=== PATIENT | male | born 1960 | race Caucasian/White ===

== ENCOUNTER 2018-12-15 15:19 | Emergency (ER) | payer OTHER ==
[2018-12-15] MEDS ORDERED: SODIUM CHLORIDE 0.9% 1,000 ML IV STA (15:52)
[2018-12-15 16:06] VITALS: BP 108/68; PULSE 69; RESP 18; TEMP 97
--- NOTE | 2018-12-15 16:48 | XR ---
EXAMINATION TYPE: XR foot complete RT DATE OF EXAM: 12/15/2018 COMPARISON: NONE HISTORY: Pain TECHNIQUE: 3 views FINDINGS: Metatarsals appear intact. There are small plantar and Achilles calcaneal spurs. There is n ondisplaced fracture of the tuft of the distal phalanx of the big toe. There are no erosions. IMPRESSION: Nondisplaced big toe fracture at the tuft.
[2018-12-15] MEDS ORDERED: ACET/COD 300 MG/30 MG STARTER PACK 6 TAB BTL PO STA (17:24)
--- NOTE | 2018-12-15 17:27 | ED ---
General Adult HPI - General Chief complaint: Extremity Injury, Lower Stated complaint: right foot injury, [facility] Time Seen by Provider: 12/15/18 15:52 Source: patient, RN notes reviewed Mode of arrival: ambulatory Limitations: no limitations - History of Present Illness Initial comments: 50-year-old male presents to the emergency department for chief complaint of right great toe pain. Patient states he was at work when he dropped a plow on his right great toe. Patient states it is swollen and painful. States this happened about one hour prior to arrival. Patient denies any other injuries. Patient is able to ambulate on the foot although it is painful when pressure is applied to the great toe.Patient has no other complaints at this time including shortness of breath, chest pain, abdominal pain, nausea or vomiting, headache, or visual changes. - Related Data Allergies Allergy/AdvReac Type Severity Reaction Status Date / Time No Known Allergies Allergy Verified 12/15/18 16:06 Review of Systems ROS Statement: Those systems with pertinent positive or pertinent negative responses have been documented in the HPI. ROS Other: All systems not noted in ROS Statement are negative. Past Medical History Past Medical History: No Reported History History of Any Multi-Drug Resistant Organisms: None Reported Past Surgical History: No Surgical Hx Reported Past Psychological History: No Psychological Hx Reported Smoking Status: Never smoker Past Alcohol Use History: Daily Past Drug Use History: None Reported General Exam Limitations: no limitations General appearance: alert, in no apparent distress Head exam: Present: atraumatic, normocephalic, normal inspection Eye exam: Present: normal appearance, PERRL, EOMI. Absent: scleral icterus, conjunctival injection, periorbital swelling ENT exam: Present: normal exam, mucous membranes moist Neck exam: Present: normal inspection, full ROM. Absent: tenderness, meningismus, lymphadenopathy Respiratory exam: Present: normal lung sounds bilaterally. Absent: respiratory distress, wheezes, rales, rhonchi, stridor Cardiovascular Exam: Present: regular rate, normal rhythm, normal heart sounds. Absent: systolic murmur, diastolic murmur, rubs, gallop, clicks Extremities exam: Present: tenderness (Generalized tenderness of the right great toe), normal capillary refill (Capillary refill less than 2 seconds, DP pulse 2+ and), joint swelling (Patient does have edema with minimal ecchymosis noted to the right great toe), other (Sensation intact in the right lower extremity). Absent: full ROM (Patient has pain with flexion of the right great toe) Course Vital Signs 12/15/18 16:04 Temperature 97 F L Pulse Rate 69 Respiratory 18 Rate Blood Pressure 108/68 O2 Sat by Pulse 98 Oximetry Medical Decision Making - Medical Decision Making 58-year-old male presents to the emergency department for a chief complaint of r ight great toe pain. Patient dropped a plow on his right great toe. There is minimal ecchymosis with some edema present. No tenderness in the rest of the right foot. X-ray does show a nondisplaced big toe fracture at the tuft. I did offer patient a fracture shoe but he did not like how this feels. He would rather where his wide toed work boots. Patient educated to take Motrin for pain and to take Tylenol 3 if pain is severe. Patient will not drive or operate machinery while taking Tylenol 3. He will follow up with primary care orthopedics. He will return here if he has any worsening symptoms. Disposition Clinical Impression: Fracture of great toe Disposition: HOME SELF-CARE Condition: Good Instructions (If sedation given, give patient instructions): Toe Fracture (ED) Additional Instructions: Please take Motrin for pain. If pain is severe take Tylenol 3. Do not operate machinery or drive while taking Tylenol 3. Follow up with primary care in 1-2 days or orthopedics. Return here if you have any worsening symptoms. Is patient prescribed a controlled substance at d/c from ED?: No Referrals: Jason Thompson DO [Primary Care Provider] - 1-2 days Oj Hare MD [Medical Doctor] - 1-2 days Time of Disposition: 17:24
== END 2018-12-15 17:39 | disposition home or self-care (01) ==
LOC: EC 15:19
DX: S92.424A Nondisplaced fracture of distal phalanx of right great toe, initial encounter for closed fracture (principal); Z53.8 Procedure and treatment not carried out for other reasons; W20.8XXA Other cause of strike by thrown, projected or falling object, initial encounter; Y92.69 Other specified industrial and construction area as the place of occurrence of the external cause; Y99.0 Civilian activity done for income or pay
CPT/HCPCS: 99283

== ENCOUNTER 2022-02-20 14:17 | Emergency (ER) | payer OTHER ==
[2022-02-20 14:37] VITALS: BP 128/66; PULSE 52; RESP 20; TEMP 98
[2022-02-20 15:11] LABS: Basophils % (A) 1 %; Eosinophils # (A) 0.2 k/uL (0-0.7); Eosinophils % (A) 3 %; HCT 44.2 % (39.0-53.0); HGB 14.7 gm/dL (13.0-17.5); Lymphocytes # (A) 1.4 k/uL (1.0-4.8); Lymphocytes % (A) 21 %; MCH 29.8 pg (25.0-35.0); MCHC 33.2 g/dL (31.0-37.0); MCV 89.7 fL (80.0-100.0); Mean Platelet Volume 7.1; Monocytes # (A) 0.6 k/uL (0-1.0); Monocytes % (A) 9 %; Neutrophils # (A) 4.1 k/uL (1.3-7.7); Neutrophils % (A) 63 %; Platelet Count 200 k/uL (150-450); RBC 4.93 m/uL (4.30-5.90); RDW 14.2 % (11.5-15.5); WBC 6.5 k/uL (3.8-10.6)
--- NOTE | 2022-02-20 15:12 | XR ---
AP pelvis HISTORY: Trauma and pain Single frontal view of the pelvis is submitted. Surgical jessenia are present overlying the scrotum. Bone mineralization, joint spaces and alignment a re maintained. Degenerative disc changes are present in the visualized spine. Possible prostate calci fication present within the pelvis, there are vascular calcifications noted incidentally. IMPRESSION: No acute fracture or dislocation.
--- NOTE | 2022-02-20 15:14 | XR ---
EXAMINATION TYPE: XR chest 1V portable DATE OF EXAM: 02/20/2022 COMPARISON: NONE HISTORY: Trauma and pain TECHNIQUE: Single frontal view of the chest is obtained. FINDINGS: There are nodular densities scattered within the lungs. No evident pneumothorax or pleural effusion. Cardiac mediastinal silhouette is within normal limits accounting for technique, rotation. Aorta is dense. There are overlying leads. No evident fracture. IMPRESSION: Indeterminate lung nodules, comparison with old chest x-rays if available would be of be nefit, findings may represent ossified granuloma. No acute cardiopulmonary disease is evident.
--- NOTE | 2022-02-20 15:20 | ED ---
General Adult HPI - General Chief complaint: Fall Stated complaint: [facility]HS-L arm/back injury Time Seen by Provider: 02/20/22 14:38 Source: patient Mode of arrival: ambulatory Limitations: no limitations - History of Present Illness Initial comments: Dictation was produced using [employer] dictation software. please excuse any grammatical, word or spelling errors. 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 He states that he was standing with excavated tried to make a turn. He was nudged by the counter balance and loss his balance. He rolled down a trench that was approximately 8-10 feet. Patient was in the toe on scene. Patient was seen in triage and activated as a level II trauma. Patient does take anticoagulation medications. Patient states he has some back pain exam auditory. States that the pain is not severe. The ROS documented in this emergency department record has been reviewed and confirmed by me. Those systems with pertinent positive or negative responses h ave been documented in the HPI. All other systems are other negative and/or noncontributory. PHYSICAL EXAM: General Impression: Alert and oriented x3, not in acute distress HEENT: Normocephalic atraumatic, extra-ocular movements intact, pupils equal and reactive to light bilaterally, mucous membranes moist. Cardiovascular: Heart regular rate and rhythm Chest: Able to complete full sentences, no retractions, no tachypnea Abdomen: abdomen soft, non-tender, non-distended, no organomegaly Musculoskeletal: Pulses present and equal in all extremities, no peripheral edema Motor: no focal deficits noted Neurological: CN II-XII grossly intact, no focal motor or sensory deficits noted Skin: Intact with no visualized rashes Psych: Normal affect and mood ED course: 61-year-old well-appearing male presents to the emergency department after fall. Patient is on adequate ventilation medications. [place] the job site where he fell into a trench that measures approximately 8-10 feet. Patient is activated level II trauma. He is well-appearing. Vital Signs upon arrival are within acceptable limits. Laboratory evaluation obtained. CBC, metabolic panel is unremarkable.. Coag panel is negative. Computed tomography scan of the brain and C-spine shows no acute processes. Thoracic spine and lumbar spine x-ray shows no acute processes. Patient is well-appearing. Patient feels well and motor without complications. Patient wants a note to be cleared to go back to work. - Related Data Home Medications Medication Instructions Recorded Confirmed Apixaban [Eliquis] 5 mg PO BID 02/20/22 02/20/22 Atorvastatin [Lipitor] 20 mg PO HS 02/20/22 02/20/22 Clobetasol Propionate [Temovate 1 applic TOPICAL BID PRN 02/20/22 02/20/22 0.05% Cream] Lisinopril-Hctz 10-12.5 mg 1 tab PO DAILY 02/20/22 02/20/22 [Zestoretic 10-12.5] Sotalol [Betapace] 80 mg PO BID 02/20/22 02/20/22 Allergies Allergy/AdvReac Type Severity Reaction Status Date / Time No Known Allergies Allergy Verified 02/20/22 14:37 Review of Systems ROS Statement: Those systems with pertinent positive or pertinent negative responses have been documented in the HPI. ROS Other: All systems not noted in ROS Statement are negative. Past Medical History Past Medical History: No Reported History, Hypertension Additional Past Medical History / Comment(s): Afib History of Any Multi-Drug Resistant Organisms: None Reported Past Surgical History: No Surgical Hx Reported Past Psychological History: No Psychological Hx Reported Smoking Status: Never smoker Past Alcohol Use History: Daily Past Drug Use History: None Reported General Exam Limitations: no limitations Course Vital Signs 02/20/22 14:33 Temperature 98.0 F Pulse Rate 52 L Respiratory 20 Rate Blood Pressure 128/66 O2 Sat by Pulse 98 Oximetry Medical Decision Making - Lab Data Result diagrams: 02/20/22 14:55 02/20/22 14:55 Lab Results 02/20/22 02/20/22 02/20/22 Range/Units 14:55 14:55 14:55 WBC 6.5 (3.8-10.6) k/uL RBC 4.93 (4.30-5.90) m/uL Hgb 14.7 (13.0-17.5) gm/dL Hct 44.2 (39.0-53.0) % MCV 89.7 (80.0-100.0) fL MCH 29.8 (25.0-35.0) pg MCHC 33.2 (31.0-37.0) g/dL RDW 14.2 (11.5-15.5) % Plt Count 200 (150-450) k/uL MPV 7.1 Neutrophils % 63 % Lymphocytes % 21 % Monocytes % 9 % Eosinophils % 3 % Basophils % 1 % Neutrophils # 4.1 (1.3-7.7) k/uL Lymphocytes # 1.4 (1.0-4.8) k/uL Monocytes # 0.6 (0-1.0) k/uL Eosinophils # 0.2 (0-0.7) k/uL Basophils # 0.0 (0-0.2) k/uL PT 10.7 (9.0-12.0) sec INR 1.0 (<1.2) APTT 25.2 (22.0-30.0) sec Sodium 138 (137-145) mmol/L Potassium 4.4 (3.5-5.1) mmol/L Chloride 103 (98-107) mmol/L Carbon Dioxide 29 (22-30) mmol/L Anion Gap 6 mmol/L BUN 22 H (9-20) mg/dL Creatinine 0.85 (0.66-1.25) mg/dL Est GFR (CKD-EPI)AfAm >90 (>60 ml/min/1.73 sqM) Est GFR (CKD-EPI)NonAf >90 (>60 ml/min/1.73 sqM) Glucose 99 (74-99) mg/dL Calcium 9.5 (8.4-10.2) mg/dL Total Bilirubin 0.7 (0.2-1.3) mg/dL AST 41 (17-59) U/L ALT 33 (4-49) U/L Alkaline Phosphatase 63 (38-126) U/L Troponin I (0.000-0.034) ng/mL Total Protein 7.4 (6.3-8.2) g/dL Albumin 4.5 (3.5-5.0) g/dL Serum Alcohol <10 mg/dL 02/20/22 Range/Units 14:55 WBC (3.8-10.6) k/uL RBC (4.30-5.90) m/uL Hgb (13.0-17.5) gm/dL Hct (39.0-53.0) % MCV (80.0-100.0) fL MCH (25.0-35.0) pg MCHC (31.0-37.0) g/dL RDW (11.5-15.5) % Plt Count (150-450) k/uL MPV Neutrophils % % Lymphocytes % % Monocytes % % Eosinophils % % Basophils % % Neutrophils # (1.3-7.7) k/uL Lymphocytes # (1.0-4.8) k/uL Monocytes # (0-1.0) k/uL Eosinophils # (0-0.7) k/uL Basophils # (0-0.2) k/uL PT (9.0-12.0) sec INR (<1.2) APTT (22.0-30.0) sec Sodium (137-145) mmol/L Potassium (3.5-5.1) mmol/L Chloride (98-107) mmol/L Carbon Dioxide (22-30) mmol/L Anion Gap mmol/L BUN (9-20) mg/dL Creatinine (0.66-1.25) mg/dL Est GFR (CKD-EPI)AfAm (>60 ml/min/1.73 sqM) Est GFR (CKD-EPI)NonAf (>60 ml/min/1.73 sqM) Glucose (74-99) mg/dL Calcium (8.4-10.2) mg/dL Total Bilirubin (0.2-1.3) mg/dL AST (17-59) U/L ALT (4-49) U/L Alkaline Phosphatase (38-126) U/L Troponin I 0.014 (0.000-0.034) ng/mL Total Protein (6.3-8.2) g/dL Albumin (3.5-5.0) g/dL Serum Alcohol mg/dL Disposition Clinical Impression: Back strain Disposition: HOME SELF-CARE Condition: Good Instructions (If sedation given, give patient instructions): Low Back Strain (ED) Is patient prescribed a controlled substance at d/c from ED?: No Referrals: Jason Thompson DO [Primary Care Provider] - 1-2 days Time of Disposition: 17:09
[2022-02-20 15:29] LABS: ALT 33 U/L (4-49); AST 41 U/L (17-59); African American GFR (CKD) >90 (>60 ml/min/1.73 sqM); Albumin 4.5 g/dL (3.5-5.0); Alcohol <10 mg/dL; Alkaline Phosphatase 63 U/L (38-126); Anion Gap 6 mmol/L; Blood Urea Nitrogen 22 mg/dL (9-20); Calcium 9.5 mg/dL (8.4-10.2); Carbon Dioxide 29 mmol/L (22-30); Chloride 103 mmol/L (98-107); Glucose 99 mg/dL (74-99); Non-African American GFR(CKD) >90 (>60 ml/min/1.73 sqM); Potassium 4.4 mmol/L (3.5-5.1); Sodium 138 mmol/L (137-145); Total Bilirubin 0.7 mg/dL (0.2-1.3); Total Protein 7.4 g/dL (6.3-8.2)
[2022-02-20 15:30] LABS: Partial Thromboplastin Time 25.2 sec (22.0-30.0); Prothrombin Time 10.7 sec (9.0-12.0)
--- NOTE | 2022-02-20 15:50 | CT ---
EXAMINATION TYPE: CT brain abe wo con DATE OF EXAM: 02/20/2022 COMPARISON: None available HISTORY: fall CT DLP: [id number] mGycm Automated exposure control for dose reduction was used. TECHNIQUE: CT scan of the head and cervical spine are performed without contrast. FINDINGS: There is no acute intracranial hemorrhage, mass effect, or midline shift identified. The ventricles and sulci are within normal limits in size. The globes are intact and the visualized sin uses are clear. Cervical spine is visualized in its entirety from C1 through upper thoracic levels and demonstrates s atisfactory alignment without evidence of acute fracture or dislocation. Prevertebral soft tissue ap pears within normal limits. The C1-C2 articulation is unremarkable. Degenerative changes of of the cervical spine with multilevel spinal canal stenosis and neuroforamina l stenosis. Slightly prominent palatine tonsils, please correlate clinically. Ossification of the sty lohyoid ligaments, more on the right side which can be seen in cases of [place] syndrome. IMPRESSION: 1. There is no acute fracture or dislocation evident in the cervical spine. 2. No acute intracranial hemorrhage, mass effect, or midline shift is seen. 3. Incidental findings as described above.
--- NOTE | 2022-02-20 16:04 | XR ---
Lumbar spine and thoracic spine HISTORY: Trauma and pain 3 views of the thoracic spine, 3 views the lumbar spine submitted There is multilevel spondylosis present. Thoracic spine shows preserved height and alignment. Loss of disc height present at intervertebral levels the midthoracic spine. Flowing anterior osteophytes wit h relative preservation of some disc spaces suggest possible diffuse idiopathic skeletal hyperostosis . Lumbar spine shows slight spinal curvature. Hypertrophic spondylosis again noted. Intervertebral di scs show loss of height with associated vacuum phenomenon. Sclerosis in the posterior elements is con sistent with facet arthropathy. Lumbar vertebral bodies show preserved height and bone mineralization . IMPRESSION: Degenerative disc disease, facet arthropathy and additional findings above. No acute frac ture or subluxation is evident.
[2022-02-20] MEDS ORDERED: ACET/COD 300 MG/30 MG STARTER PACK 6 TAB BTL PO STA (17:09)
== END 2022-02-20 17:29 | disposition home or self-care (01) ==
LOC: EC 14:17
DX: S39.012A Strain of muscle, fascia and tendon of lower back, initial encounter (principal); W19.XXXA Unspecified fall, initial encounter; Y92.59 Other trade areas as the place of occurrence of the external cause
CPT/HCPCS: 36415; 70450; 71045; 72072; 72100; 72125; 72170; 80053; 80320; 84484; 85025; 85610; 85730; 99284